=== PATIENT | male | born 1945 | race Caucasian/White ===

== ENCOUNTER → 2018-04-27 | Outpatient (CLI) | payer MEDICARE ==
[~2018-04-27] MED LIST: AMLODIPINE-ATO1 EAC8; JALYN 0.5-0.41 EACH
--- NOTE | 2018-04-27 09:01 | Diagnostic Imaging Report ---
PROCEDURE:X-RAY UPPER GI SERIES WITH AIR CONTRAST COMPARISON:None. INDICATIONS:Vomiting with early satiety FINDINGS:The patient was given air crystals, thick barium, and thin barium to drink in upright and prone positions. Multiple images of the esophagus, stomach and duodenum were obtained. Evaluation of the esophagus reveals no evidence of dysmotility, mucosal irregularity, stricture or reflux. Small sliding hiatal hernia is present. The stomach is normal without evidence of intrinsic mucosal or extrinsic abnormality. Nonspecific fold thickening of the duodenum is noted. There is no evidence of ulcer. No intraluminal polyp or mass. Fluoroscopy time: 2.4 minutes Total dose: 58.57 mGy CONCLUSION: 1. Small sliding hiatal hernia. 2. Nonspecific duodenal fold thickening. Broderick Jacobsen D.O. Dictated by: Broderick Jacobsen D.O. on 04/27/2018 at 9:04 Electronically approved by: Broderick Jacobsen D.O. on 04/27/2018 at 9:12
== END ==
LOC: DX 06:55
PROVIDERS: ATTEND Family Medicine Geriatric Medicine
DX: R63.0 Anorexia (principal); R68.81 Early satiety; K56.7 Ileus, unspecified
CPT/HCPCS: 74220; 74246